=== PATIENT | female | born 1965 | race Caucasian/White ===

== ENCOUNTER 2022-02-08 07:32 | Emergency (ER) | payer OTHER ==
[2022-02-08] MEDS ORDERED: NA CHLORIDE 0.9% 1,000 ML ONE (08:00)
[2022-02-08] MEDS ORDERED: ONDANSETRON 4 MG/2 ML VIAL ONE (08:00)
[2022-02-08 08:08] LABS: Absolute Lymphocytes (CBC) 0.3 K/uL (0.7-4.9); Hematocrit 45.7 % (36.0-45.0); Lymphocytes % 2.5 % (15.3-44.8); MPV 8.2 fL (7.6-11.3); RBC Red Blood Cell Count 4.92 M/uL (3.86-4.86)
[2022-02-08 08:16] LABS: Albumin 4.3 g/dL (3.4-5.0); Bilirubin Total 1.1 mg/dL (0.2-1.0); Potassium 3.6 mmol/L (3.5-5.1); Protein, Total 8.1 g/dL (6.4-8.2)
[2022-02-08] MEDS ORDERED: KETOROLAC 30 MG/ML INJ ONE (08:21)
[2022-02-08] MEDS ORDERED: MORPHINE 2 MG/ML SYR ONE (08:21)
--- NOTE | 2022-02-08 08:56 | RAD REPORT ---
EXAM DESCRIPTION: CT - Stone Protocol - 02/08/2022 8:37 am CLINICAL HISTORY: Flank pain. flank pain COMPARISON: No comparisons TECHNIQUE: Axial images were obtained without oral or IV contrast. Lack of contrast limits solid org an and vascular assessment. The [id number] spans the entirety of the system partially obscuring uppermost abdomen and lung bases. Coronal reformatted images were obtained and reviewed. All CT scans are performed using dose optimization technique as appropriate and may include automated exposure control or mA/KV adjustment according to patient size. FINDINGS: The lower lung mandujano are clear. Cholecystectomy clips. Imaged portions of the liver and spleen show no suspicious findings on non-contrast imaging. The panc reas and adrenal glands are normal. No pathologic lymphadenopathy in the abdomen or pelvis. Small caliceal stones are present bilaterally without hydronephrosis. No bowel obstruction, free air, free fluid or abscess. Normal appendix noted. Moderate lower lumbar degenerative changes. IMPRESSION: Small caliceal renal calculi bilaterally without hydronephrosis.
--- NOTE | 2022-02-08 09:07 | RAD REPORT ---
EXAM DESCRIPTION: RAD - Chest Single View - 02/08/2022 8:53 am CLINICAL HISTORY: COUGH Chest pain. COMPARISON: No comparisonsChest Pa And Lat (2 Views) dated 02/21/2020; Chest Pa And Lat (2 Views) mary ed 12/27/2018; Chest Single View dated 09/18/2016 FINDINGS: Portable technique limits examination quality. The lungs are grossly clear. The heart is normal in size. No displaced fractures. IMPRESSION: No acute intrathoracic process suspected.
[2022-02-08 09:48] LABS: Urine Blood Trace-intact (Negative); Urine Glucose Negative (Negative); Urine Protein 1+ (Negative); Urine pH 7.5 (5.0-7.0)
[2022-02-08] MEDS ORDERED: CEFTRIAXONE 1000 MG/VIAL ONE (09:58)
[2022-02-08 10:09] LABS: Urine Bacteria <20 /HPF (<20)
[2022-02-08 10:10] LABS: Urine Mucus 1+ /HPF (NONE SEEN); Urine Urothelial Cells <5 /HPF (NONE SEEN)
--- NOTE | 2022-02-08 10:15 | ER ---
Nurse's Notes [facility] Name: Jaylin Dykes Age: 56 yrs Sex: Female : 1965 Arrival Date: 02/08/2022 Time: 07:35 Bed 5 Private MD: Diagnosis: UTI/ Urinary tract infection, site not specified;Low back pain;Nausea Presentation: 02/08 07:43 Chief complaint: Patient states: Woke up at 0130 this morning w/ N/V, also c/o pain to ph R lower back and RUQ, denies, fever or diarrhea. Coronavirus screen: Vaccine status: Patient reports being unvaccinated. Ebola Screen: No symptoms or risks identified at this time. Initial Sepsis Screen: Does the patient meet any 2 criteria? No. Patient's initial sepsis screen is negative. Does the patient have a suspected source of infection? No. Patient's initial sepsis screen is negative. Risk Assessment: Do you want to hurt yourself or someone else? Patient reports no desire to harm self or others. Onset of symptoms was February 08, 2022. 07:43 Method Of Arrival: Ambulatory 07:43 Acuity: ROHIT 2 ph Triage Assessment: 07:46 General: Appears in no apparent distress. uncomfortable, well groomed, Behavior is ph calm, cooperative, appropriate for age. Pain: Complains of pain in right upper quadrant. Pain: Complains of pain in right low back. Neuro: Level of Consciousness is awake, alert, obeys commands, Oriented to person, place, time, situation. GI: Reports upper abdominal pain, nausea, vomiting. Historical: - Allergies: 07:44 No Known Allergies; ph - Home Meds: 07:44 rosuvastatin 10 mg oral cpSP 1 cap once daily [Active]; [place]gins Thyroid 30 mg Oral tab 1 ph tab once daily [Active]; 08:00 Levothroid 75 mcg Oral tab 1 tab once daily [Active]; simvastatin 20 mg Oral tab 1 tab jg9 once daily [Active]; Vitamin D Oral 2000 unit daily [Active]; - PMHx: 07:44 Hypothyroidism; ph - PSHx: 07:44 Cholecystectomy; ph - Immunization history:: Adult Immunizations unknown. - Social history:: Smoking status: Patient denies any tobacco usage or history of. Screenin:54 Abuse screen: Denies threats or abuse. Nutritional screening: No deficits noted. ll1 Tuberculosis screening: No symptoms or risk factors identified. Fall Risk IV access (20 points). Total [place] Fall Scale indicates No Risk (0-24 pts). Assessment: 07:59 Reassessment: No changes from previously documented assessment. Patient is alert, jg9 oriented x 3, equal unlabored respirations, skin warm/dry/pink. General: Appears uncomfortable, Behavior is calm. Pain: Complains of pain in back and right low back. Neuro: No deficits noted. Cardiovascular: Rhythm is sinus tachycardia. Respiratory: No deficits noted. GI: Bowel sounds present X 4 quads. Abd is soft X 4 quads Abdomen is tender to palpation X 4 quads. GI: No deficits noted. GI: Reports nausea, vomiting, patient reports she has been vomiting all night after eating taco cee. : No deficits noted. EENT: No deficits noted. Derm: No deficits noted. Musculoskeletal: No deficits noted. 08:00 Reassessment: No changes from previously documented assessment. Patient and/or family ll1 updated on plan of care and expected duration. Pain level reassessed. Patient is alert, oriented x 3, equal unlabored respirations, skin warm/dry/pink. 09:00 Reassessment: No changes from previously documented assessment. Patient and/or family ll1 updated on plan of care and expected duration. Pain level reassessed. Patient is alert, oriented x 3, equal unlabored respirations, skin warm/dry/pink. Patient states feeling better. Patient states symptoms have improved. 09:24 Reassessment: Patient states feeling better. Patient states symptoms have improved. jg9 Pain: Complains of pain in back and right low back. 10:20 Reassessment: No changes from previously documented assessment. ll1 11:00 Reassessment: No changes from previously documented assessment. Patient and/or family ll1 updated on plan of care and expected duration. Pain level reassessed. Patient is alert, oriented x 3, equal unlabored respirations, skin warm/dry/pink. Patient states feeling better. Patient states symptoms have improved. Vital Signs: 07:43 BP 127 / 99; Pulse 143; Resp 18; Temp 99.8(O); Pulse Ox 98% on R/A; Weight 81.65 kg; ph Height 5 ft. 7 in. (170.18 cm); 07:54 BP 104 / 63; Pulse 130; Resp 17; Pulse Ox 99% ; ll1 08:08 BP 129 / 78; Pulse 121; Pulse Ox 98% on R/A; jg9 08:23 BP 119 / 74; Pulse 110; Resp 16; Pulse Ox 99% ; Pain 5/10; ll1 08:51 Pulse 109; Pulse Ox 98% ; ll1 09:00 Pulse 97; Pulse Ox 99% ; ll1 09:15 BP 115 / 59; Pulse 102; Resp 14 S; Pulse Ox 99% on R/A; Pain 6/10; jg9 10:32 BP 115 / 74; Pulse 101; Resp 15; ll1 11:03 BP 106 / 60; Pulse 97; Resp 16; Pulse Ox 99% on R/A; ll1 07:43 Body Mass Index 28.19 (81.65 kg, 170.18 cm) ph ED Course: 07:35 Patient arrived in ED. rg4 07:37 Mariano Long MD is Attending Physician. yumi 07:38 Lor Mullen, JAKE is Primary Nurse. ll1 07:39 Arm band placed on Patient placed in an exam room, on a stretcher. ll1 07:44 Triage completed. ph 07:46 Inserted saline lock: 20 gauge in right antecubital area, using aseptic technique. ll1 Blood collected. 07:54 Patient has correct armband on for positive identification. Bed in low position. Call ll1 light in reach. Side rails up X 1. Client placed on continuous cardiac and pulse oximetry monitoring. NIBP monitoring applied. 08:38 CT Stone Protocol In Process Unspecified. EDMS 08:55 Chest Single View XRAY In Process Unspecified. EDMS 09:25 No apparent distress. Resting quietly. Awaiting lab results, Awaiting radiology jg9 results. Awaiting disposition. Patient requests pain medication. 09:35 Lidya Gaona PA is PHCP. en 11:04 IV discontinued, intact, bleeding controlled, No redness/swelling at site. Pressure ll1 dressing applied. 11:04 No provider procedures requiring assistance completed. ll1 Administered Medications: 07:58 Drug: NS 0.9% 1000 ml Route: IV; Rate: 1 bolus; Site: right forearm; jg9 09:24 Follow up: IV Status: Completed infusion; IV Intake: 1000ml jg9 07:58 Drug: Zofran (Ondansetron) 4 mg Route: IVP; Site: right forearm; jg9 08:16 Follow up: Response: Nausea is decreased jg9 08:22 Drug: TORadol (ketorolac) 30 mg Route: IVP; Site: right antecubital; ll1 08:51 Follow up: Response: No adverse reaction; Pain is decreased; RASS: Alert and Calm (0) ll1 08:23 Drug: morphine 2 mg Route: IVP; Infused Over: 4 mins; Site: right antecubital; ll1 08:51 Follow up: Response: No adverse reaction; Pain is decreased; RASS: Alert and Calm (0) ll1 10:04 Drug: Rocephin (cefTRIAXone) 1 grams Route: IV; Rate: per protocol; Site: right forearm;jg9 10:20 Follow up: Response: Temperature is decreased; Other; RASS: Alert and Calm (0); IV ll1 Status: Completed infusion; IV Intake: 20ml ; itching and rash to neck area. No SOB. Dr. Long notified. 10:25 Drug: LevOfloxacin 750 mg Route: PO; ll1 11:03 Follow up: Response: No adverse reaction ll1 10:25 Drug: SOLU-Medrol (methylPrednisoLONE) 125 mg Route: IVP; Site: right antecubital; ll1 11:03 Follow up: Response: No adverse reaction ll1 10:25 Drug: predniSONE 40 mg Route: PO; ll1 11:03 Follow up: Response: No adverse reaction ll1 10:25 Drug: Benadryl (diphenhydrAMINE) 50 mg Route: IVP; Site: right antecubital; ll1 11:03 Follow up: Response: No adverse reaction ll1 11:03 Not Given (Patient Refused): Zofran (Ondansetron) 4 mg IVP once; over 2 minutes ll1 Medication: 07:54 VIS not applicable for this client. ll1 Intake: 09:24 IV: 1000ml; Total: 1000ml. jg9 10:20 IV: 20ml; Total: 1020ml. ll1 Outcome: 10:14 Discharge ordered by MD. eason 11:04 Discharged to home ambulatory. ll1 11:04 Condition: stable 11:04 Discharge instructions given to patient, Instructed on discharge instructions, follow up and referral plans. medication usage, Demonstrated understanding of instructions, follow-up care, medications, Prescriptions given X 4. 11:04 Patient left the ED. ll1 Signatures: Dispatcher [employer] EDMariano Swain MD MD cha Hall, Patricia, RN RN ph Arnav, Celsa rg4 Lor Mullen RN RN ll1 Autumn Marin RN RN jg9 Lidya Gaona PA PA en Corrections: (The following items were deleted from the chart) 08:17 08:08 BP 129 / 78; Pulse 121bpm; ll1 jg9
--- NOTE | 2022-02-08 10:15 | EDPHYS ---
Physician Documentation [facility] Name: Jaylin Dykes Age: 56 yrs Sex: Female : 1965 Arrival Date: 02/08/2022 Time: 07:35 Bed 5 Private MD: ED Physician Mariano Long HPI: 02/08 08:17 This 56 yrs old Female presents to ER via Ambulatory with complaints of yumi Abdominal Pain, Vomiting, Low Back Pain. 08:17 The patient presents to the emergency department with nausea, vomiting, that is yumi intermittent. Onset: The symptoms/episode began/occurred last night. Historical: - Allergies: 07:44 No Known Allergies; ph - Home Meds: 07:44 rosuvastatin 10 mg oral cpSP 1 cap once daily [Active]; [place] Thyroid 30 mg Oral tab 1 ph tab once daily [Active]; 08:00 Levothroid 75 mcg Oral tab 1 tab once daily [Active]; simvastatin 20 mg Oral tab 1 tab jg9 once daily [Active]; Vitamin D Oral 2000 unit daily [Active]; - PMHx: 07:44 Hypothyroidism; ph - PSHx: 07:44 Cholecystectomy; ph - Immunization history:: Adult Immunizations unknown. - Social history:: Smoking status: Patient denies any tobacco usage or history of. ROS: 08:19 Constitutional: Negative for fever, chills, and weight loss, Eyes: Negative for injury, yumi pain, redness, and discharge, ENT: Negative for injury, pain, and discharge, Neck: Negative for injury, pain, and swelling, Respiratory: Negative for shortness of breath, cough, wheezing, and pleuritic chest pain, : Negative for injury, bleeding, discharge, and swelling, MS/Extremity: Negative for injury and deformity, Skin: Negative for injury, rash, and discoloration, Neuro: Negative for headache, weakness, numbness, tingling, and seizure, Psych: Negative for depression, anxiety, suicide ideation, homicidal ideation, and hallucinations, Allergy/Immunology: Negative for hives, rash, and allergies, Endocrine: Negative for neck swelling, polydipsia, polyuria, polyphagia, and marked weight changes, Hematologic/Lymphatic: Negative for swollen nodes, abnormal bleeding, and unusual bruising. 08:19 Cardiovascular: Positive for palpitations. 08:19 Abdomen/GI: Positive for abdominal pain, nausea and vomiting. 08:19 Back: Positive for pain at rest, flank pain, on the right. Exam: 08:19 Constitutional: This is a well developed, well nourished patient who is awake, alert, yumi and in no acute distress. Head/Face: Normocephalic, atraumatic. Eyes: Pupils equal round and reactive to light, extra-ocular motions intact. Lids and lashes normal. Conjunctiva and sclera are non-icteric and not injected. Cornea within normal limits. Periorbital areas with no swelling, redness, or edema. ENT: Nares patent. No nasal discharge, no septal abnormalities noted. Tympanic membranes are normal and external auditory canals are clear. Oropharynx with no redness, swelling, or masses, exudates, or evidence of obstruction, uvula midline. Mucous membranes moist. Neck: Trachea midline, no thyromegaly or masses palpated, and no cervical lymphadenopathy. Supple, full range of motion without nuchal rigidity, or vertebral point tenderness. No Meningismus. Chest/axilla: Normal chest wall appearance and motion. Nontender with no deformity. No lesions are appreciated. Respiratory: Lungs have equal breath sounds bilaterally, clear to auscultation and percussion. No rales, rhonchi or wheezes noted. No increased work of breathing, no retractions or nasal flaring. Abdomen/GI: Soft, non-tender, with normal bowel sounds. No distension or tympany. No guarding or rebound. No evidence of tenderness throughout. Female : Normal external genitalia. Skin: Warm, dry with normal turgor. Normal color with no rashes, no lesions, and no evidence of cellulitis. MS/ Extremity: Pulses equal, no cyanosis. Neurovascular intact. Full, normal range of motion. Neuro: Awake and alert, GCS 15, oriented to person, place, time, and situation. Cranial nerves II-XII grossly intact. Motor strength 5/5 in all extremities. Sensory grossly intact. Cerebellar exam normal. Normal gait. Psych: Awake, alert, with orientation to person, place and time. Behavior, mood, and affect are within normal limits. 08:19 Cardiovascular: Rate: tachycardic, Rhythm: regular, Pulses: Pulses are 4+ in bilateral radial, brachial, femoral, popliteal, posterior tibial and and dorsalis pedis arteries.. 08:19 ECG was reviewed by the Attending Physician. Vital Signs: 07:43 BP 127 / 99; Pulse 143; Resp 18; Temp 99.8(O); Pulse Ox 98% on R/A; Weight 81.65 kg; ph Height 5 ft. 7 in. (170.18 cm); 07:54 BP 104 / 63; Pulse 130; Resp 17; Pulse Ox 99% ; ll1 08:08 BP 129 / 78; Pulse 121; Pulse Ox 98% on R/A; jg9 08:23 BP 119 / 74; Pulse 110; Resp 16; Pulse Ox 99% ; Pain 5/10; ll1 08:51 Pulse 109; Pulse Ox 98% ; ll1 09:00 Pulse 97; Pulse Ox 99% ; ll1 09:15 BP 115 / 59; Pulse 102; Resp 14 S; Pulse Ox 99% on R/A; Pain 6/10; jg9 10:32 BP 115 / 74; Pulse 101; Resp 15; ll1 11:03 BP 106 / 60; Pulse 97; Resp 16; Pulse Ox 99% on R/A; ll1 07:43 Body Mass Index 28.19 (81.65 kg, 170.18 cm) ph MDM: 07:37 Patient medically screened. [facility] 08:22 Differential diagnosis: Nonspecific abd pain, pancreatitis, appendicitis, yumi diverticulitis, viral gastroenteritis, gastroenteritis. Data reviewed: vital signs, nurses notes, lab test result(s), EKG, radiologic studies, CT scan, plain films. Data interpreted: insurance territory manager: rate is 121 beats/min, rhythm is regular, Pulse oximetry: on room air is 98 %. Test interpretation: by ED physician or midlevel provider: ECG, plain radiologic studies. Counseling: I had a detailed discussion with the patient and/or guardian regarding: the historical points, exam findings, and any diagnostic results supporting the discharge/admit diagnosis, lab results, radiology results. 02/08 07:49 Order name: CBC with Diff 02/08 07:49 Order name: CMP; Complete Time: 08:18 bb 02/08 07:49 Order name: Lipase; Complete Time: 08:18 bb 02/08 08:19 Order name: Troponin High Sensitivity; Complete Time: 09:40 yumi 02/08 08:25 Order name: CBC Smear Scan EDPR 02/08 09:42 Order name: Urine Culture [facility] 02/08 08:11 Order name: CT Stone Protocol; Complete Time: 09:40 [facility] 02/08 08:11 Order name: Chest Single View XRAY; Complete Time: 09:40 [facility] 02/08 09:47 Order name: Urine Microscopic Only dh3 02/08 09:48 Order name: Urine Dipstick-Ancillary; Complete Time: 10:06 EDMS 02/08 07:49 Order name: IV Saline Lock; Complete Time: 07:49 02/08 07:49 Order name: Labs collected and sent; Complete Time: 07:49 02/08 07:49 Order name: EKG; Complete Time: 07:50 02/08 07:49 Order name: EKG - Nurse/Tech; Complete Time: 07:50 02/08 08:11 Order name: Urine Dipstick-Ancillary (obtain specimen); Complete Time: 09:47 [facility] EC:19 Rate is 131 beats/min. Rhythm is regular. QRS [place] is Normal. DC interval is normal. [facility] QRS interval is normal. QT interval is normal. No Q waves. T waves are Normal. ST Segment is depressed in leads II, III, aVF, V3, V4, V5, V6. Clinical impression: Sinus tachycardia. Administered Medications: 07:58 Drug: NS 0.9% 1000 ml Route: IV; Rate: 1 bolus; Site: right forearm; jg9 09:24 Follow up: IV Status: Completed infusion; IV Intake: 1000ml 9 07:58 Drug: Zofran (Ondansetron) 4 mg Route: IVP; Site: right forearm; jg9 08:16 Follow up: Response: Nausea is decreased j9 08:22 Drug: TORadol (ketorolac) 30 mg Route: IVP; Site: right antecubital; ll1 08:51 Follow up: Response: No adverse reaction; Pain is decreased; RASS: Alert and Calm (0) ll1 08:23 Drug: morphine 2 mg Route: IVP; Infused Over: 4 mins; Site: right antecubital; ll1 08:51 Follow up: Response: No adverse reaction; Pain is decreased; RASS: Alert and Calm (0) ll1 10:04 Drug: Rocephin (cefTRIAXone) 1 grams Route: IV; Rate: per protocol; Site: right forearm;jg9 10:20 Follow up: Response: Temperature is decreased; Other; RASS: Alert and Calm (0); IV ll1 Status: Completed infusion; IV Intake: 20ml ; itching and rash to neck area. No SOB. Dr. Long notified. 10:25 Drug: LevOfloxacin 750 mg Route: PO; ll1 11:03 Follow up: Response: No adverse reaction ll1 10:25 Drug: SOLU-Medrol (methylPrednisoLONE) 125 mg Route: IVP; Site: right antecubital; ll1 11:03 Follow up: Response: No adverse reaction ll1 10:25 Drug: predniSONE 40 mg Route: PO; ll1 11:03 Follow up: Response: No adverse reaction ll1 10:25 Drug: Benadryl (diphenhydrAMINE) 50 mg Route: IVP; Site: right antecubital; ll1 11:03 Follow up: Response: No adverse reaction ll1 11:03 Not Given (Patient Refused): Zofran (Ondansetron) 4 mg IVP once; over 2 minutes ll1 Disposition Summary: 02/08/22 10:14 Discharge Ordered Location: Home yumi Problem: new yumi Symptoms: have improved yumi Condition: Stable yumi Diagnosis - UTI/ Urinary tract infection, site not specified yumi - Low back pain yumi - Nausea yumi Followup: yumi - With: Private Physician - When: 2 - 3 days - Reason: Recheck today's complaints, Continuance of care, Re-evaluation by your physician Discharge Instructions: - Discharge Summary Sheet yumi - Acute Back Pain, Adult yumi - Musculoskeletal Pain yumi - Nausea and Vomiting, Adult yumi - Urinary Tract Infection, Adult yumi - Urinary Tract Infection, Adult, [id number] [facility] Forms: - Medication Reconciliation Form [facility] - Thank You Letter yumi - Antibiotic Education yumi - Prescription Opioid Use [facility] Prescriptions: - Zofran 4 mg Oral Tablet - take 1 tablet by ORAL route every 8 hours As needed; 20 tablet; Refills: 0, [facility] Product Selection Permitted - levofloxacin 500 mg Oral Tablet - take 1 tablet by ORAL route once daily for 7 days; 7 tablet; Refills: 0, [facility] Product Selection Permitted - Tylenol-Codeine #3 300 mg-30 mg Oral - take 2 tablet by ORAL route every 6 hours; 20 tablet; Refills: 0, Product yumi Selection Permitted - Medrol (Hemanth) 4 mg Oral Tablets, Dose Pack - take 1 tablet by ORAL route as directed - follow package instructions; 1 yumi packet; Refills: 0, Product Selection Permitted Signatures: Dispatcher [employer] Mariano Olivares MD MD cha Ballard, Brenda RN RN Gudelia Ghotra RN RN carter Mullen, Lor RN RN ll1 Autumn Marin RN RN jg9
[2022-02-08] MEDS ORDERED: METHYLPREDNISOLONE 125 MG INJ ONE (10:17)
[2022-02-08] MEDS ORDERED: levoFLOXacin 750 MG TAB ONE (10:17)
[2022-02-08] MEDS ORDERED: predniSONE 20 MG TAB ONE (10:18)
[2022-02-08] MEDS ORDERED: DIPHENHYDRAMINE 50 MG/ML VIAL ONE (10:18)
[2022-02-08 10:53] LABS: Blood Morphology Comment NOT SEEN (NOT SEEN); Platelet Estimate ADEQ; White Blood Cell Scan OK (OK)
[2022-02-08 11:11] VITALS: TEMP 99.8
[2022-02-08 11:18] VITALS: O2SAT 99
[2022-02-08 11:27] VITALS: BP 106/60
--- NOTE | 2022-02-09 13:22 | EKG ---
Test Date: 2022-02-08 Test Time: 07:45:37 Music Typographer: SHIVA MEASUREMENT RESULTS: Intervals: Rate: 131 VA: 132 QRSD: 86 QT: 308 QTc: 454 [place]: P: 96 VA: 132 QRS: 87 T: 264 INTERPRETIVE STATEMENTS: Sinus tachycardia ST & T wave abnormality, consider inferior ischemia ST & T wave abnormality, consider anterolateral ischemia Abnormal ECG Compared to ECG 03/31/2017 08:34:51 ST (T wave) deviation now present Possible ischemia now present Sinus rhythm no longer present Electronically Signed On 02-09-22 13:20:04 CDT by Tk Douglas
== END 2022-02-08 11:04 | disposition home or self-care (01) ==
LOC: ER 07:32
DX: N39.0 Urinary tract infection, site not specified (principal); M54.50 Low back pain, unspecified; E03.9 Hypothyroidism, unspecified
CPT/HCPCS: 93005; 87088; 85025; 87086; 36415; 84484; 83690; 80053; 76377; 74176; 71045; 99284; J1200; J7512; J2270; J7030; J2930; J2405; 81003; 81015

== ENCOUNTER 2022-04-24 21:32 | Emergency (ER) | payer OTHER, SELFPAY ==
[2022-04-24 22:15] LABS: Absolute Lymphocytes (CBC) 1.3 K/uL (0.7-4.9); Hematocrit 39.7 % (36.0-45.0); Lymphocytes % 20.8 % (15.3-44.8); MCV 92.9 fL (80-100); MPV 7.7 fL (7.6-11.3); RBC Red Blood Cell Count 4.28 M/uL (3.86-4.86)
[2022-04-24 22:37] LABS: Potassium 3.4 mmol/L (3.5-5.1); Thyroid Stimulating Hormone 1.65 uIU/mL (0.360-3.740); Troponin High Sensitivity 12.2 pg/mL (<58.9)
--- NOTE | 2022-04-24 22:40 | RAD REPORT ---
EXAM DESCRIPTION: Karey Single View04/24/2022 10:25 pm CLINICAL HISTORY: Palpitations COMPARISON: February 2022 FINDINGS: The lungs appear clear of acute infiltrate. The heart is normal size IMPRESSION: No acute abnormalities displayed
--- NOTE | 2022-04-25 00:25 | EDPHYS ---
Physician Documentation [facility] Name: Jaylin Dykes Age: 56 yrs Sex: Female : 1965 Arrival Date: 04/24/2022 Time: 21:34 Bed 7 Private MD: ED Physician Derek Altamirano HPI: 04/25 00:35 This 56 yrs old Female presents to ER via Wheelchair with complaints of High Blood kb Pressure, High HR. 00:36 The patient presents with a history of heart racing. Context: The symptoms occur at kb rest. Onset: The symptoms/episode began/occurred just prior to arrival. Duration: The patient or guardian reports a single episode, that is now resolved. Modifying factors: The symptoms are aggravated by nothing. The symptoms are alleviated by nothing. Associated signs and symptoms: The patient has no apparent associated signs or symptoms. Severity of symptoms: At their worst the symptoms were moderate in the emergency department the symptoms have resolved. The patient has not experienced similar symptoms in the past. The patient has not recently seen a physician. 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 States she was at rest when she felt them and her pulse was 163 at the time. States it didn't last long, but it was worse than some of the palpitations that she has had in the past so she came to make sure everything was ok. Pt was switched from levothyroxine to armour thyroid approx 15 weeks ago. States she has had palpitations intermittently for years, was checked by a cerner analyst 8-10 years ago and cleared. . Historical: - Home Meds: 04/24 21:50 [place] Thyroid 30 mg Oral tab 1 tab once daily [Active]; Levothroid 75 mcg Oral tab 1 bm7 tab once daily [Active]; rosuvastatin 10 mg Oral cpSP 1 cap once daily [Active]; simvastatin 20 mg Oral tab 1 tab once daily [Active]; Vitamin D Oral 2000 unit daily [Active]; - PMHx: 21:50 Hypothyroidism; bm7 - PSHx: 21:50 Cholecystectomy; bm7 - Immunization history:: Adult Immunizations up to date. - Social history:: Smoking status: Patient denies any tobacco usage or history of. ROS: 04/25 00:23 Constitutional: Negative for fever, chills, and weight loss. kb Cardiovascular: Positive for palpitations, Negative for chest pain. All other systems are negative. Exam: 04/24 22:57 Constitutional: This is a well developed, well nourished patient who is awake, alert, kb and in no acute distress. Head/Face: Normocephalic, atraumatic. ENT: Moist Mucous membranes Chest/axilla: Normal chest wall appearance and motion. Cardiovascular: Regular rate and rhythm with a normal S1 and S2. No gallops, murmurs, or rubs. No pulse deficits. Respiratory: Respirations even and unlabored. No increased work of breathing. Talking in full sentences Abdomen/GI: Soft, non-tender. No distention Skin: Warm, dry with normal turgor. Normal color. MS/ Extremity: Pulses equal, no cyanosis. Neurovascular intact. Full, normal range of motion. Neuro: Awake and alert, GCS 15, oriented to person, place, time, and situation. Moves all extremities. Normal gait. Psych: Awake, alert, with orientation to person, place and time. Behavior, mood, and affect are within normal limits. ECG was reviewed by the Attending Physician. Vital Signs: 21:49 BP 152 / 81; Pulse 105; Resp 22; Temp 98.0(O); Pulse Ox 99% on R/A; Weight 81.65 kg bm7 (R); Height 5 ft. 7 in. (170.18 cm); Pain 0/10; 22:14 BP 133 / 74; Pulse 97; Resp 20; Pulse Ox 100% on R/A; lp1 23:00 BP 118 / 65; Pulse 83; Resp 12 S; Pulse Ox 97% on R/A; jb4 04/25 00:30 BP 118 / 71; Pulse 83; Resp 14; Pulse Ox 95% on R/A; jb4 04/24 21:49 Body Mass Index 28.19 (81.65 kg, 170.18 cm) bm7 MDM: 04/24 21:54 Patient medically screened. kb 04/25 00:24 Data reviewed: vital signs, nurses notes. Data interpreted: Pulse oximetry: on room air kb is 97 %. Interpretation: normal. Counseling: I had a detailed discussion with the patient and/or guardian regarding: the historical points, exam findings, and any diagnostic results supporting the discharge/admit diagnosis, lab results, radiology results, the need for outpatient follow up, a cerner analyst, a family practitioner, to return to the emergency department if symptoms worsen or persist or if there are any questions or concerns that arise at home. 04/24 21:55 Order name: Basic Metabolic Panel; Complete Time: 22:44 kb 04/24 21:55 Order name: CBC with Diff; Complete Time: 22:29 kb 04/24 21:55 Order name: D-Dimer; Complete Time: 22:29 kb 04/24 21:55 Order name: NT PRO-BNP; Complete Time: 22:44 kb 04/24 21:55 Order name: Troponin HS; Complete Time: 22:44 kb 04/24 21:55 Order name: TSH; Complete Time: 22:44 kb 04/24 21:55 Order name: XRAY Chest (1 view); Complete Time: 22:44 kb 04/24 21:55 Order name: EKG; Complete Time: 21:56 kb 04/24 21:55 Order name: Cardiac monitoring; Complete Time: 22:11 kb 04/24 21:55 Order name: EKG - Nurse/Tech; Complete Time: 22:11 kb 04/24 21:55 Order name: IV Saline Lock; Complete Time: 22:11 kb 04/24 21:55 Order name: Labs collected and sent; Complete Time: 22:11 kb 04/24 21:55 Order name: O2 Per Protocol; Complete Time: 22:07 kb 04/24 21:55 Order name: O2 Sat Monitoring; Complete Time: 22:07 kb EC/19 22:57 Rate is 92 beats/min. Rhythm is regular. QRS [place] is Normal. UT interval is normal at kb 136 msec. QRS interval is normal at 88 msec. QT interval is normal at 460 msec. Administered Medications: No medications were administered Disposition: 04/25 01:35 Co-signature as Attending Physician, Derek Altamirano MD I agree with the assessment and kdr plan of care. Disposition Summary: 04/25/22 00:24 Discharge Ordered Location: Home kb Condition: Stable kb Diagnosis - Palpitations kb Followup: kb - With: Emergency Department - When: As needed - Reason: Worsening of condition Followup: kb - With: Private Physician - When: 2 - 3 days - Reason: Recheck today's complaints, Continuance of care, Re-evaluation by your physician Discharge Instructions: - Discharge Summary Sheet kb - Palpitations, [id number] kb Forms: - Medication Reconciliation Form kb - Thank You Letter kb - Antibiotic Education kb - Prescription Opioid Use kb Signatures: Dispatcher [employer] Cecy aLguna, STEVO LEVY-Derek Bailey MD MD kdr McCarthy, Brittany RN RN bm7
--- NOTE | 2022-04-25 00:25 | ER ---
Nurse's Notes [facility] Name: Jaylin Dykes Age: 56 yrs Sex: Female : 1965 Arrival Date: 04/24/2022 Time: 21:34 Bed 7 Private MD: Diagnosis: Palpitations Presentation: 04/24 21:49 Chief complaint: Patient states: I started feeling my heart racing while I was sitting bm7 in my chair. I checked it my pulse and it said it was 160. Coronavirus screen: At this time, the client does not indicate any symptoms associated with coronavirus-19. Ebola Screen: No symptoms or risks identified at this time. Initial Sepsis Screen: Does the patient meet any 2 criteria? No. Patient's initial sepsis screen is negative. Does the patient have a suspected source of infection? No. Patient's initial sepsis screen is negative. Risk Assessment: Do you want to hurt yourself or someone else? Patient reports no desire to harm self or others. Onset of symptoms was April 24, 2022. 21:49 Method Of Arrival: Wheelchair bm7 21:49 Acuity: ROHIT 2 bm7 Triage Assessment: 21:50 General: Appears in no apparent distress. comfortable, Behavior is calm, cooperative, bm7 appropriate for age. Pain: Denies pain. EENT: No deficits noted. No signs and/or symptoms were reported regarding the EENT system. Neuro: No deficits noted. Cardiovascular: Reports palpitations, Rhythm is sinus tachycardia Chest pain is denied. Respiratory: Reports shortness of breath Airway is patent Respiratory effort is even, unlabored. GI: No deficits noted. No signs and/or symptoms were reported involving the gastrointestinal system. : No deficits noted. No signs and/or symptoms were reported regarding the genitourinary system. Derm: No deficits noted. No signs and/or symptoms reported regarding the dermatologic system. Musculoskeletal: No deficits noted. No signs and/or symptoms reported regarding the musculoskeletal system. Historical: - Home Meds: 21:50 [place] Thyroid 30 mg Oral tab 1 tab once daily [Active]; Levothroid 75 mcg Oral tab 1 bm7 tab once daily [Active]; rosuvastatin 10 mg Oral cpSP 1 cap once daily [Active]; simvastatin 20 mg Oral tab 1 tab once daily [Active]; Vitamin D Oral 2000 unit daily [Active]; - PMHx: 21:50 Hypothyroidism; bm7 - PSHx: 21:50 Cholecystectomy; bm7 - Immunization history:: Adult Immunizations up to date. - Social history:: Smoking status: Patient denies any tobacco usage or history of. Screenin:10 Abuse screen: Denies threats or abuse. Denies injuries from another. Nutritional lp1 screening: No deficits noted. Tuberculosis screening: No symptoms or risk factors identified. Fall Risk None identified. Assessment: 22:25 General: Appears in no apparent distress. comfortable, Behavior is cooperative, jb4 anxious. Pain: Denies pain. Neuro: Level of Consciousness is awake, alert, obeys commands, Oriented to person, place, time, situation. Cardiovascular: Patient's skin is warm and dry. Respiratory: Airway is patent Respiratory effort is even, unlabored, Respiratory pattern is regular, symmetrical. Derm: Skin is intact, Skin is pink, warm \T\ dry. Musculoskeletal: Circulation, motion, and sensation intact. Range of motion: intact in all extremities. 23:30 Reassessment: Patient appears in no apparent distress at this time. Patient and/or jb4 family updated on plan of care and expected duration. Pain level reassessed. Patient is alert, oriented x 3, equal unlabored respirations, skin warm/dry/pink. 04/25 00:48 Reassessment: Patient appears in no apparent distress at this time. Patient and/or jb4 family updated on plan of care and expected duration. Pain level reassessed. Patient is alert, oriented x 3, equal unlabored respirations, skin warm/dry/pink. Vital Signs: 04/24 21:49 BP 152 / 81; Pulse 105; Resp 22; Temp 98.0(O); Pulse Ox 99% on R/A; Weight 81.65 kg bm7 (R); Height 5 ft. 7 in. (170.18 cm); Pain 0/10; 22:14 BP 133 / 74; Pulse 97; Resp 20; Pulse Ox 100% on R/A; lp1 23:00 BP 118 / 65; Pulse 83; Resp 12 S; Pulse Ox 97% on R/A; jb4 04/25 00:30 BP 118 / 71; Pulse 83; Resp 14; Pulse Ox 95% on R/A; jb4 04/24 21:49 Body Mass Index 28.19 (81.65 kg, 170.18 cm) bm7 ED Course: 04/24 21:34 Patient arrived in ED. bp1 21:50 Triage completed. bm7 21:50 Arm band placed on right wrist. EKG completed in triage. Results shown to MD. bm7 21:54 Cecy Miguel FNP-C [facility]. kb 21:54 Derek Altamirano MD is Attending Physician. kb 22:07 Domo Otoole, RN is Primary Nurse. jb4 22:10 Patient has correct armband on for positive identification. Bed in low position. Client lp1 placed on continuous cardiac and pulse oximetry monitoring. NIBP monitoring applied. 22:14 Inserted saline lock: 20 gauge in right antecubital area, using aseptic technique. mw1 forearm, using aseptic technique. 22:28 XRAY Chest (1 view) In Process Unspecified. EDMS 04/25 00:30 No provider procedures requiring assistance completed. IV discontinued, intact, jb4 bleeding controlled, No redness/swelling at site. Pressure dressing applied. Administered Medications: No medications were administered Medication: 04/24 22:11 VIS not applicable for this client. lp1 Outcome: 04/25 00:24 Discharge ordered by MD. kb 00:30 Discharged to home ambulatory. jb4 00:30 Condition: stable 00:30 Discharge instructions given to patient, Instructed on discharge instructions, follow up and referral plans. Demonstrated understanding of instructions, follow-up care. 00:49 Patient left the ED. jb4 Signatures: Dispatcher [employer] EDNH Cecy Miguel FNP-C FNP-Ashley Zhong RN RN lp1 Domo Otoole, RN JAKE jb4 Jose Ferreira mw1 Rosemary Wells [facility] Rosemary Cornejo, RN RN bm7
[2022-04-25 03:50] VITALS: TEMP 98
[2022-04-25 03:57] VITALS: BP 118/71; O2SAT 95
--- NOTE | 2022-04-27 08:14 | EKG ---
Test Date: 2022-04-24 Test Time: 21:55:26 Internal Combustion Engine Inspector: DONELL MEASUREMENT RESULTS: Intervals: Rate: 92 AR: 136 QRSD: 88 QT: 372 QTc: 460 [place]: P: 62 AR: 136 QRS: 60 T: 51 INTERPRETIVE STATEMENTS: Normal sinus rhythm Normal ECG Compared to ECG 02/08/2022 07:45:37 Sinus tachycardia no longer present ST (T wave) deviation no longer present Possible ischemia no longer present Electronically Signed On 04-27-22 08:07:06 CDT by Albin Hou
== END 2022-04-25 00:49 | disposition home or self-care (01) ==
LOC: ER 21:32
DX: R00.2 Palpitations (principal); E03.9 Hypothyroidism, unspecified
CPT/HCPCS: 36415; 71045; 80048; 83880; 84443; 84484; 85025; 85379; 93005; 99284

== ENCOUNTER 2023-10-08 10:19 | Day surgery (SDC) | payer OTHER ==
[2023-10-06 15:50] LABS: Absolute Lymphocytes (CBC) 1.4 K/uL (0.7-4.9); Hematocrit 39.1 % (36.0-45.0); Lymphocytes % 31.4 % (15.3-44.8); MCV 90.8 fL (80-100); MPV 7.8 fL (7.6-11.3); Platelets 253 thou/uL (152-406); RBC Red Blood Cell Count 4.31 M/uL (3.86-4.86)
--- NOTE | 2023-10-06 15:54 | RAD REPORT ---
EXAM DESCRIPTION: Karey Pang (2 Views)10/06/2023 3:46 pm CLINICAL HISTORY: Preop for knee surgery COMPARISON: 2021 FINDINGS: The lungs appear clear of acute infiltrate. The heart is normal size IMPRESSION: No acute abnormalities displayed
[2023-10-06 15:58] LABS: Protime INR 1.07
[2023-10-06 16:05] LABS: Potassium 3.6 mEq/L (3.5-5.1)
--- NOTE | 2023-10-07 13:23 | EKG ---
Test Date: 2023-10-06 Test Time: 16:23:23 Rehab Consultant: DARRYL MEASUREMENT RESULTS: Intervals: Rate: 86 OK: 138 QRSD: 90 QT: 382 QTc: 457 [place]: P: 72 OK: 138 QRS: 70 T: 49 INTERPRETIVE STATEMENTS: Normal sinus rhythm ST abnormality, possible digitalis effect Abnormal ECG Compared to ECG 04/24/2022 21:55:26 ST (T wave) deviation now present Electronically Signed On 10-07-23 13:22:03 REFUGE MANAGER by Tk Douglas
[2023-10-08] MEDS: Ringers Lactate 1,000 ML IV ONE (10:40)
[2023-10-08] MEDS ORDERED: ONDANSETRON 4 MG/2 ML VIAL ONE (11:34)
[2023-10-08] MEDS ORDERED: LIDOCAINE 2% MPF 5 ML VIAL ONE (11:35)
[2023-10-08] MEDS ORDERED: FENTANYL CITR 100 MCG/2 ML ONE (11:35)
[2023-10-08] MEDS ORDERED: MIDAZOLAM HCL 2 MG/2 ML INJ ONE (11:35)
[2023-10-08] MEDS: CLINDAMYCIN 600MG/D5W 50 ML IV ONE (11:50)
[2023-10-08] MEDS ORDERED: propofoL 200 MG/20 ML VIAL IV ONE (12:51)
[2023-10-08 13:57] VITALS: BP 120/83; TEMP 98.2; O2SAT 97
--- NOTE | 2023-10-08 21:00 | OP ---
Date of Procedure: 10/08/2023 Surgeon: Himanshu Chandler MD Preoperative Diagnosis: Left anterior knee cyst. Postoperative Diagnosis: Left anterior knee cyst. Procedure Performed: Excision, left anterior knee mass. Anesthesia: General, LMA. Fluids: Per Anesthesia record. Estimated Blood Loss: 3 cc Complications: None. Implants: None. Tourniquet Time: 22 minutes at 300 mmHg. Indication For Procedure: Jaylin is a 57-year-old female, presented to my clinic with signs, symptoms , and MRI findings consistent with anterior knee mass. The patient reports pain that interferes with her activities of daily living. I discussed with the patient at length the risks and benefits assoc iated with operative and nonoperative treatment. She expressed understanding and elected to proceed with operative treatment. Description Of Procedure: After informed consent was obtained, the patient was identified in the pre operative holding area. The left knee mass was marked. The patient was then brought back to the ope rating room, transferred to the operating table in supine fashion, and placed under general LMA anest hesia. The left lower extremity was then prepped and draped in usual sterile fashion. Time-out was initiated. Correct patient and procedure were confirmed and identified. The patient did receive her preoperative prophylactic antibiotics. The left lower extremity was exsanguinated and tourniquet wa s inflated at 300 mmHg. Approximately, a 2 cm longitudinal incision was made centered over the knee mass, which was just distal to the knee joint line. Dissection was then taken superficially and ther e was encountered a cystic-like structure just deep to the skin. It was dissected out and sent to Pa thology. The wound was then irrigated thoroughly with normal saline. Subcutaneous tissue was approx imated using a 2-0 Vicryl and 4-0 Monocryl. Sterile dressings were applied. Tourniquet was let down . The patient was awakened and transferred to PACU in stable condition. Postoperative Plan: The patient will be weightbearing as tolerated. She will follow up in clinic in 1 week for wound check. CV/MODL Voice ID: [id number] Report ID: [id number]
== END 2023-10-08 13:48 | disposition home or self-care (01) ==
LOC: OR 10:19
PROVIDERS: ATTEND Orthopaedic Surgery Sports Medicine
PROC: 0JBP0ZZ Excision of Left Lower Leg Subcutaneous Tissue and Fascia, Open Approach (ICD-10-PCS; principal; 2023-10-08 11:30)
DX: D21.22 Benign neoplasm of connective and other soft tissue of left lower limb, including hip (principal); M25.862 Other specified joint disorders, left knee; M25.562 Pain in left knee; M17.12 Unilateral primary osteoarthritis, left knee
CPT/HCPCS: 11402; 93005; 85025; 80048; 36415; 85610; 88305; 85730; 71046; J2704; J2001; J2250; J3010; J2405; J7120